=== PATIENT | female | born 1990 | race Caucasian/White ===

== ENCOUNTER 2022-06-03 08:50 | Outpatient (CLI) | payer OTHER, SELFPAY ==
--- NOTE | ~2022-06-03 | XR_ITS ---
EXAMINATION: XR abdomen/kub 1V INDICATION: Constipation TECHNIQUE: Supine view of the abdomen is obtained. COMPARISON: None FINDINGS: There is a moderate volume of colonic stool. No dilated loops of bowel are evident. The vis ualized osseous structures are normal. IMPRESSION: 1. Moderate volume of colonic stool. Reviewed, dictated and finalized at location A.
== END 2022-06-03 08:51 | disposition home or self-care (01) ==
PROVIDERS: PCP Emergency Medicine; Visit Provider Internal Medicine Gastroenterology
DX: K59.00 Constipation, unspecified (principal)
CPT/HCPCS: 74018

== ENCOUNTER 2022-06-17 08:29 | Outpatient (CLI) | payer OTHER, SELFPAY ==
--- NOTE | ~2022-06-17 | XR_ITS ---
EXAMINATION: XR_ENEMABAC_CR DATE: 06/17/2022 09:30 INDICATION: Constipation. Incomplete colonoscopy. TECHNIQUE: A accountant cost radiograph was obtained. A catheter was inserted into the patient's rectum. Contra st was infused by gravity. Gas was infused by hand pump. Fluoroscopic spot images and conventional ra diographs were obtained. Fluoroscopy exposure time was 1.0 minutes. The total number of images was 42 . COMPARISON: None. FINDINGS: There is no abnormal mass or stricture. Small mobile filling defects are likely stool. The cecum is incompletely opacified, which decreases sensitivity. IMPRESSION: 1. No abnormal mass or stricture. Reviewed, dictated and finalized at location A.
== END 2022-06-17 08:30 | disposition home or self-care (01) ==
LOC: ANHIMG 08:33
PROVIDERS: PCP Nurse Practitioner; Visit Provider Internal Medicine Gastroenterology
DX: Z53.9 Procedure and treatment not carried out, unspecified reason (principal)
CPT/HCPCS: 74280

== ENCOUNTER 2024-07-22 10:37 | Emergency (ER) | payer OTHER, SELFPAY ==
--- NOTE | ~2024-07-22 | CT_ITS ---
EXAMINATION: CT brain wo con DATE: 07/22/2024 10:51 INDICATION: Left facial droop TECHNIQUE: Computed tomography (CT) of the head was performed without intravenous contrast. Sagittal and coronal reconstructions were performed. The mA was adjusted according to patient size. Iterative reconstruction technique was employed. The dose-length product was 681.00 mGy-cm. COMPARISON: None FINDINGS: No acute intracranial hemorrhage, acute infarction or abnormal extra axial fluid collection. Ventricl es are normal and symmetric. No mass/mass effect. The orbits, paranasal sinuses and mastoid air cells are normal. IMPRESSION: 1. Normal head CT. Reviewed, dictated and finalized at location B. SHOVER IMPRESSION: 1. Normal head CT.
--- NOTE | ~2024-07-22 | CT_ITS ---
EXAMINATION: CTA BRAIN/CAROTID DATE: 07/22/2024 10:57 INDICATION: Left facial droop TECHNIQUE: Computed tomographic angiography (CTA) of the head and neck was performed with 100 mL Omni paque-350 intravenous contrast. Multiplanar reconstructions and maximum intensity projection 3D-recon structions of the carotid arteries and of the intracranial arteries were created by the technologist on a separate workstation. Precontrast CT of the head was also obtained. Automated exposure control and iterative reconstruction technique were employed.The dose-length product was 1082.46 mGy-cm. COMPARISON: None. FINDINGS: Carotid arteries: Visualized aortic arch is normal in caliber with no dissection. Left vertebral artery is dominant. No evident stenosis along the bilateral cervical vertebral arteries. There is no evident atheroscleroti c plaque with 0% stenosis of the right and left carotid bulbs relative to normal distal artery lumen diameter (NASCET criteria). Visualized upper lungs are clear. Cervical soft tissues are unremarkable. Likely positional reversal of the normal cervical lordosis. Moderate disc height loss with small ant erior endplate osteophytes at C6-C7. Intracranial arteries There is no hemodynamically significant stenosis in the vertebral, basilar and internal carotid arter ies. Vertebral arteries are codominant. There are no aneurysms identified. Both A1 and P1 segments a re patent. There are also patent anterior communicating and bilateral posterior communicating arterie s. Cerebral arterial arborization appears symmetric. IMPRESSION: 1. No evident atherosclerotic plaque with 0% stenosis of the right and left carotid bulbs relative to normal distal artery lumen diameter (NASCET criteria). 2. Unremarkable cerebral CT angiogram with no aneurysm, thrombosis or significant stenosis. Reviewed, dictated and finalized at location B. ON MACHINE OPERATOR IMPRESSION: 1. No evident atherosclerotic plaque with 0% stenosis of the right and left car otid bulbs relative to normal distal artery lumen diameter (NASCET criteria). 2. Unremarkable cerebral CT angiogram with no aneurysm, thrombosis or significa nt stenosis.
[2024-07-22 10:37] VITALS: BP 114/64; PULSE 107; RESP 18
[2024-07-22 10:40] VITALS: BP 114/64; PULSE 107; RESP 16; TEMP 36.6; O2SAT 100
--- NOTE | 2024-07-22 10:47 | PC.NURSE ---
Pt assessed by Dr. Santos sent for stat CT scan
[2024-07-22 11:03] LABS: Glucose Point of Care 98 mg/dl (65-105)
[2024-07-22 11:10] LABS: Basophils Absolute Auto 0.1 K/mm3 (0.0-0.1); Eosinophils Absolute Auto 0.1 K/mm3 (0-0.3); Eosinophils Percent Auto 1.3 % (0-4.4); Hematocrit 40.8 % (37.0-47.0); Hemoglobin 13.2 g/dL (12.0-15.0); Immature Granulocyte Absolute 0.03 K/mm3 (0.00-0.031); Immature Granulocyte Percent A 0.3 % (0-0.5); Lymphocytes Absolute Auto 2.01 K/mm3 (0.9-3.2); Lymphocytes Percent Auto 22.5 % (18.3-44.2); Mean Corpuscular HGB Conc 32.4 g/dl (32-36); Mean Corpuscular Hemoglobin 27.1 pg (26-34); Mean Corpuscular Volume 83.8 fl (80-100); Mean Platelet Volume 9.9 fl (7.4-10.4); Monocytes Absolute Auto 0.5 K/mm3 (0.1-0.6); Monocytes Percent Auto 5.7 % (2.6-8.5); Neutrophils Absolute Auto 6.2 K/mm3 (1.3-6.7); Neutrophils Percent Auto 69.2 % (45.5-73.1); Platelet Count Result 350 k/mm3 (150-375); Red Blood Count 4.87 M/mm3 (4.2-5.4); Red Cell Distribution Width 14.1 % (11.5-14.5); White Blood Count 8.9 K/mm3 (4.5-10.0)
[2024-07-22 11:25] LABS: Prothrombin Time 13.2 Seconds (11.1-14.7)
[2024-07-22 11:26] LABS: Partial Thromboplastin Time 28.1 Seconds (22.3-36.8)
[2024-07-22 11:28] LABS: Pregnancy On Board Control Positive; Urine Pregnancy Test Negative
[2024-07-22 11:30] LABS: Alanine Aminotransferase 15 U/L (6-35); Albumin Level 4.6 g/dL (3.5-5.1); Alkaline Phosphatase 56 U/L (38-126); Anion Gap 8 mmol/L (4-12); Aspartate Amino Transferase 25 U/L (14-36); Bilirubin,Total 0.4 mg/dL (0.2-1.3); Blood Urea Nitrogen 7 mg/dL (7-17); Calcium 9.3 mg/dL (8.4-10.2); Carbon Dioxide 29 mmol/L (22-30); Chloride 101 mmol/L (98-107); Estimated CRCL calculation 105 ml/min; Estimated Glomerular Filt Rate > 60; Glucose 78 mg/dL (65-110); Potassium 3.6 mmol/L (3.4-5.0); Sodium 138 mmol/L (137-145)
[2024-07-22 11:49] LABS: Influenza A QL RT-PCR Negative (Negative); Influenza B QL RT-PCR Negative (Negative); RSV RNA, RT-PCR Negative (Negative); SARS-CoV-2 RNA PCR Negative (Negative)
--- NOTE | 2024-07-22 13:41 | ED.NEUROSD ---
HPI - Neuro Symptoms/Deficit General Chief Complaint: Neuro Symptoms/Deficit <WENDY Godinez Last Filed: 07/22/24 19:29> Stated Complaint: facial drooping <WENDY Godinez Last Filed: 07/22/24 19:29> Time Seen by Provider: 07/22/24 13:38 <WENDY Godinez Last Filed: 07/22/24 19:29> Source: patient <WENDY Godinez Last Filed: 07/22/24 19:29> Mode of arrival: ambulatory <WENDY Godinez Last Filed: 07/22/24 19:29> Limitations: no limitations <WENDY Godinez Last Filed: 07/22/24 19:29> History of Present Illness HPI Narrative: patient is a 33-year-old female who presents to the ED with report of facial weakness. patient reports she woke up this morning between 730-830 a.m. with the inability to move the right side of her face. Patient reports feeling of numbness in right-sided face, alteration in taste in burning to the right side or her tongue since yesterday. She notes she is under immense stress recently. she states she is unable to completely close her right eye, but denies vision changes. Denies dizziness, headache, numbness or weakness of arm or leg. <WENDY Godinez Last Filed: 07/22/24 19:29> Related Data Allergies/Adverse Reactions: Allergies Allergy/AdvReac Type Severity Reaction Status Date / Time No Known Allergies Allergy Unknown Verified 07/22/24 11:03 <WENDY Godinez Last Filed: 07/22/24 19:29> Review of Systems Review of Systems: All systems reviewed & are unremarkable except as noted in HPI. <WENDY Godinez Last Filed: 07/22/24 19:29> All systems reviewed & are unremarkable except as noted in HPI and below <WENDY Godinez Last Filed: 07/22/24 19:29> Exam Narrative: GENERAL: Well appearing, well-nourished, non-toxic, in no acute distress. HEAD: Normocephalic, atraumatic. EYES: PERRL/EOMI, conjunctivae clear bilaterally. No nystagmus. NECK: Supple. No meningeal signs. RESPIRATORY: Airway patent, respirations nonlabored. Clear to auscultation bilaterally, no rales, rhonchi, wheezing. CARDIOVASCULAR: Regular rate and rhythm without murmurs, rubs, or gallops. Peripheral pulses 2+ and equal bilaterally. MUSCULOSKELETAL: Moves all extremities. No gross deformities. SKIN: Warm, dry, normal color. No rashes. NEURO: A&O X3. Speech clear. Follows commands. CN II-XII intact aside from CN 7, inability to completely close R eye, inability to raise forehead on R side completely, R sided facial droop, inability to smile completely on R side or puff out cheeks. Sensation grossly intact throughout face, subjective numbness sensation only. Steady gait. No ataxic movements. Strength 5/5 in upper and lower extremities bilaterally. No pronator drift. Equal supervisor communications and signals strength bilaterally. PSYCHIATRIC: Mildly anxious, flat affect. Normal interaction. <Kandace Mcneil PA-C - Last Filed: 07/22/24 19:29> Course BARREL STRAIGHTENER/PA Physician Supervision For this patient encounter, I reviewed the BARREL STRAIGHTENER or PA documentation, treatment plan, and medical decision making; and I had [id number] time with this patient. <Roland Santos MD - Last Filed: 07/22/24 18:47> Vital Signs Vital signs: Vital Signs Pulse Rate 107 H 07/22/24 10:37 Respiratory Rate 18 07/22/24 10:37 Blood Pressure 114/64 07/22/24 10:37 Temperature 97.9 F 07/22/24 10:40 Pulse Rate 107 H 07/22/24 10:40 Respiratory Rate 16 07/22/24 10:40 Blood Pressure 114/64 07/22/24 10:40 Pulse Oximetry 100 07/22/24 10:40 Oxygen Delivery Room Air 07/22/24 10:40 <Kandace Mcneil PA-C - Last Filed: 07/22/24 19:29> Vital Signs Pulse Rate 107 H 07/22/24 10:37 Respiratory Rate 18 07/22/24 10:37 Blood Pressure 114/64 07/22/24 10:37 Temperature 97.9 F 07/22/24 10:40 Pulse Rate 107 H 07/22/24 10:40 Respiratory Rate 16 07/22/24 10:40 Blood Pressure 114/64 07/22/24 10:40 Pulse Oximetry 100 07/22/24 10:40 Oxygen Delivery Room Air 07/22/24 10:40 <Roland Santos MD - Last Filed: 07/22/24 18:47> MDM - Neuro Symptoms/Deficit MDM Narrative Medical decision making narrative: 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 Unequal smile/forehead wrinkling, unable to close R eye fully. There is no other neurologic findings on exam. No strength discrepancies in extremities. Sensation intact. No pronator drift. CT brain and CTA of head/ neck unremarkable. patient does admit that she has been under immense stress recently. Likely contributing to this. Denies recent infectious symptoms, viral symptoms, rash. No evidence of zoster on exam. Remainder basic laboratory studies are unremarkable. Discussed diagnosis and treatment with patient. Feel patient is safe for discharge home at this time. She is in agreement this plan. Recommended close follow-up with PCP for further evaluation. Given strict return precautions should symptoms change or worsen. Discharged in stable condition. <Kandace Mcneil PA-C - Last Filed: 07/22/24 19:29> Medical Records Attestation: I reviewed the patient's medical records. <Kandace Mcneil PA-C - Last Filed: 07/22/24 19:29> Lab Data Attestation: I reviewed the patient's lab results. <Kandace Mcneil PA-C - Last Filed: 07/22/24 19:29> Result diagrams: 07/22/24 10:58 07/22/24 10:58 <Kandace Mcneil PA-C - Last Filed: 07/22/24 19:29> Labs: Lab Results 07/22/24 07/22/24 07/22/24 Range/Units 10:58 10:59 11:04 WBC 8.9 (4.5-10.0) K/mm3 RBC 4.87 (4.2-5.4) M/mm3 Hgb 13.2 (12.0-15.0) g/dL Hct 40.8 (37.0-47.0) % MCV 83.8 (80-100) fl MCH 27.1 (26-34) pg MCHC 32.4 (32-36) g/dl RDW 14.1 (11.5-14.5) % Plt Count 350 (150-375) k/mm3 MPV 9.9 (7.4-10.4) fl Immature Gran % (Auto) 0.3 (0-0.5) % Neut % (Auto) 69.2 (45.5-73.1) % Lymph % (Auto) 22.5 (18.3-44.2) % Hamblen % (Auto) 5.7 (2.6-8.5) % Eos % (Auto) 1.3 (0-4.4) % Baso % (Auto) 1.0 (0.2-1.2) % Lymph # (Auto) 2.01 (0.9-3.2) K/mm3 Hamblen # (Auto) 0.5 (0.1-0.6) K/mm3 Eos # (Auto) 0.1 (0-0.3) K/mm3 Baso # (Auto) 0.1 (0.0-0.1) K/mm3 Abs Immat Gran (auto) 0.03 (0.00-0.031) K/mm3 Absolute Neuts (auto) 6.2 (1.3-6.7) K/mm3 Absolute Nucleated RBC 0.000 (0.0-0.012) K/mm3 Nucleated RBC % 0.0 (0.0-0.2) % PT 13.2 (11.1-14.7) Seconds INR 1.0 APTT 28.1 (22.3-36.8) Seconds Sodium 138 (137-145) mmol/L Potassium 3.6 (3.4-5.0) mmol/L Chloride 101 (98-107) mmol/L Carbon Dioxide 29 (22-30) mmol/L Anion Gap 8 (4-12) mmol/L BUN 7 (7-17) mg/dL Creatinine 0.70 (0.7-1.0) mg/dL Estim Creat Clear Calc 105 ml/min Estimated GFR > 60 (59 - ) Glucose 78 (65-110) mg/dL POC Capillary Glucose 98 (65-105) mg/dl Calcium 9.3 (8.4-10.2) mg/dL Total Bilirubin 0.4 (0.2-1.3) mg/dL AST 25 (14-36) U/L ALT 15 (6-35) U/L Alkaline Phosphatase 56 (38-126) U/L Total Protein 8.0 (6.3-8.2) g/dL Albumin 4.6 (3.5-5.1) g/dL Urine Test Negative Influenza A (RT-PCR) Negative (Negative) Influenza B (RT-PCR) Negative (Negative) RSV (RT-PCR) Negative (Negative) SARS-CoV-2 RNA (RT-PCR) Negative (Negative) <Kandace Mcneil PA-C - Last Filed: 07/22/24 19:29> Lab Results 07/22/24 07/22/24 07/22/24 Range/Units 10:58 10:59 11:04 WBC 8.9 (4.5-10.0) K/mm3 RBC 4.87 (4.2-5.4) M/mm3 Hgb 13.2 (12.0-15.0) g/dL Hct 40.8 (37.0-47.0) % MCV 83.8 (80-100) fl MCH 27.1 (26-34) pg MCHC 32.4 (32-36) g/dl RDW 14.1 (11.5-14.5) % Plt Count 350 (150-375) k/mm3 MPV 9.9 (7.4-10.4) fl Immature Gran % (Auto) 0.3 (0-0.5) % Neut % (Auto) 69.2 (45.5-73.1) % Lymph % (Auto) 22.5 (18.3-44.2) % Hamblen % (Auto) 5.7 (2.6-8.5) % Eos % (Auto) 1.3 (0-4.4) % Baso % (Auto) 1.0 (0.2-1.2) % Lymph # (Auto) 2.01 (0.9-3.2) K/mm3 Hamblen # (Auto) 0.5 (0.1-0.6) K/mm3 Eos # (Auto) 0.1 (0-0.3) K/mm3 Baso # (Auto) 0.1 (0.0-0.1) K/mm3 Abs Immat Gran (auto) 0.03 (0.00-0.031) K/mm3 Absolute Neuts (auto) 6.2 (1.3-6.7) K/mm3 Absolute Nucleated RBC 0.000 (0.0-0.012) K/mm3 Nucleated RBC % 0.0 (0.0-0.2) % PT 13.2 (11.1-14.7) Seconds INR 1.0 APTT 28.1 (22.3-36.8) Seconds Sodium 138 (137-145) mmol/L Potassium 3.6 (3.4-5.0) mmol/L Chloride 101 (98-107) mmol/L Carbon Dioxide 29 (22-30) mmol/L Anion Gap 8 (4-12) mmol/L BUN 7 (7-17) mg/dL Creatinine 0.70 (0.7-1.0) mg/dL Estim Creat Clear Calc 105 ml/min Estimated GFR > 60 (59 - ) Glucose 78 (65-110) mg/dL POC Capillary Glucose 98 (65-105) mg/dl Calcium 9.3 (8.4-10.2) mg/dL Total Bilirubin 0.4 (0.2-1.3) mg/dL AST 25 (14-36) U/L ALT 15 (6-35) U/L Alkaline Phosphatase 56 (38-126) U/L Total Protein 8.0 (6.3-8.2) g/dL Albumin 4.6 (3.5-5.1) g/dL Urine Test Negative Influenza A (RT-PCR) Negative (Negative) Influenza B (RT-PCR) Negative (Negative) RSV (RT-PCR) Negative (Negative) SARS-CoV-2 RNA (RT-PCR) Negative (Negative) <Roland Santos MD - Last Filed: 07/22/24 18:47> Imaging Data Attestation: I personally reviewed and interpreted this imaging study as follows: <Kandace Mcneil PA-C - Last Filed: 07/22/24 19:29> Radiologist's impression: ITS Impressions Head CT 07/22/24 10:54 IMPRESSION: 1. Normal head CT. Head/Neck CTA 07/22/24 10:59 IMPRESSION: 1. No evident atherosclerotic plaque with 0% stenosis of the right and left carotid bulbs relative to normal distal artery lumen diameter (NASCET criteria). 2. Unremarkable cerebral CT angiogram with no aneurysm, thrombosis or significant stenosis. <WENDY Godinez Last Filed: 07/22/24 19:29> Discharge Plan Discharge Clinical Impression: Lane's palsy <WENDY Godinez Last Filed: 07/22/24 19:29> Patient Disposition: Home, Self-Care <WENDY Godinez Filed: 07/22/24 19:29> Condition: Stable <WENDY Godinez Filed: 07/22/24 19:29> Instructions: Antibiotic Form, Lane Palsy (ED) <WENDY Godinez Last Filed: 07/22/24 19:29> Additional Instructions: Take steroids and antiviral therapies as prescribed. Follow-up closely with your primary care doctor for further evaluation. You may try taping your eye shut at night to avoid drying out of eye. You may also use [id number] eye drops for the eye. Return to the ED if you experience worsening or severe symptoms, numbness or tingling of arm or leg, weakness of arm or leg, vision changes, severe dizziness, passing out, unable to keep down food or drink, fevers, rash, or any other symptoms of concern. <WENDY Godinez Last Filed: 07/22/24 19:29> Prescriptions: New prednisone 20 mg tablet 60 mg PO DAILY 7 Days Qty: 21 0RF valacyclovir 1 gram tablet 1,000 mg PO TID 7 Days Qty: 21 0RF <WENDY Godinez Last Filed: 07/22/24 19:29> Follow-up/Referrals: Topher,Elmer J., BRAZING MACHINE OPERATOR [Non-Staff] - <Kandace Mcneil PA-C - Last Filed: 07/22/24 19:29> Time of Disposition: 13:51 <Kandace Mcneil PA-C - Last Filed: 07/22/24 19:29> 13:51 <Roland Santos MD - Last Filed: 07/22/24 18:47>
== END 2024-07-22 14:07 | disposition home or self-care (01) ==
LOC: ANHED 13:47
PROVIDERS: Emergency Medicine; Emergency Provider Physician Assistant; PCP Family Medicine
DX: G51.0 Bell's palsy (principal); Z20.822 Contact with and (suspected) exposure to COVID-19
CPT/HCPCS: 36415; 70450; 70496; 70498; 80053; 81025; 82948; 85025; 85610; 85730; 87637; 99284; Q9967